=== PATIENT | male | born 2005 | race Caucasian/White ===

== ENCOUNTER 2023-01-23 07:01 | Emergency (ER) | payer BC, OTHER ==
[2023-01-23] MEDS ORDERED: predniSONE 20 MG Tab PO STA (07:10)
[2023-01-23] MEDS ORDERED: Cetirizine 10 MG Tab PO ONE (07:10)
== END 2023-01-23 10:25 | disposition home or self-care (01) ==
LOC: JD.ED 07:01
DX: T78.1XXA Other adverse food reactions, not elsewhere classified, initial encounter (principal); Z91.010 Allergy to peanuts
CPT/HCPCS: 99283; A9270; J7512; 99284